=== PATIENT | female | born 1985 | race African-American/Black ===

== ENCOUNTER 2018-02-05 23:38 | Emergency (ER) | payer SELFPAY ==
[~2018-02-05] VITALS: Wt 77.3 kg
[2018-02-06 00:04] VITALS: TEMP 97.8
[2018-02-06] MEDS ORDERED: ULTRAM 50MG TAB50 MG PO (00:53)
[2018-02-06] MEDS ORDERED: MAGIC MOUTH PO (00:53)
[2018-02-06] MEDS ORDERED: AMOXICILLIN 50500 MG PO (00:53)
[2018-02-06 01:36] VITALS: BP 116/104; PULSE 85
== END 2018-02-06 01:28 | disposition home or self-care (01) ==
LOC: COL.ER 23:38
DX: K02.9 Dental caries, unspecified (principal); K12.0 Recurrent oral aphthae; I10 Essential (primary) hypertension; F41.9 Anxiety disorder, unspecified; F17.210 Nicotine dependence, cigarettes, uncomplicated